=== PATIENT | female | born 1955 | race Caucasian/White ===

== ENCOUNTER 2018-09-02 00:48 | Day surgery (SDC) | payer BC ==
[~2018-09-02 00:48] MED LIST: CARV6.25 PO; COMPAZINE10 MG PO; IBUP800 PO; NEUPOGEN480 MCG/0. SC; RAMI5 PO; VALACYCLOVIR1000 MG PO; Zofran4 MG PO
== END 2018-09-02 14:40 | disposition home or self-care (01) ==
LOC: ATC 00:48
DX: D70.1 Agranulocytosis secondary to cancer chemotherapy (principal); Z88.2 Allergy status to sulfonamides
CPT/HCPCS: 96372; J1447

== ENCOUNTER 2018-09-03 00:03 | Day surgery (SDC) | payer BC | END 2018-09-03 10:24 | disposition home or self-care (01) | LOC: ATC 00:03 | DX: D70.1 Agranulocytosis secondary to cancer chemotherapy (principal) | CPT/HCPCS: 96372; J1447 ==

== ENCOUNTER 2018-09-16 00:09 | Day surgery (SDC) | payer BC | END 2018-09-16 08:11 | disposition home or self-care (01) | LOC: ATC 00:09 | DX: D70.1 Agranulocytosis secondary to cancer chemotherapy (principal); Z88.2 Allergy status to sulfonamides | CPT/HCPCS: 96372; J1447 ==

== ENCOUNTER 2018-09-17 09:57 | Day surgery (SDC) | payer BC | END 2018-09-17 10:10 | disposition home or self-care (01) | LOC: ATC 09:57 | DX: Z51.11 Encounter for antineoplastic chemotherapy (principal); D70.1 Agranulocytosis secondary to cancer chemotherapy; D07.39 Carcinoma in situ of other female genital organs | CPT/HCPCS: 96372; J1447 ==

== ENCOUNTER 2018-09-23 07:58 | Day surgery (SDC) | payer BC | END 2018-09-23 10:06 | disposition home or self-care (01) | LOC: ATC 07:58 | DX: C56.9 Malignant neoplasm of unspecified ovary (principal); D70.2 Other drug-induced agranulocytosis | CPT/HCPCS: 96372; J1447 ==

== ENCOUNTER 2018-09-24 00:04 | Day surgery (SDC) | payer BC | END 2018-09-24 10:20 | disposition home or self-care (01) | LOC: ATC 00:04 | DX: C56.9 Malignant neoplasm of unspecified ovary (principal) | CPT/HCPCS: 96372; J1447 ==

== ENCOUNTER 2018-10-07 00:05 | Day surgery (SDC) | payer BC | END 2018-10-07 09:53 | disposition home or self-care (01) | LOC: ATC 00:05 | DX: C56.9 Malignant neoplasm of unspecified ovary (principal) | CPT/HCPCS: 96372; J1447 ==

== ENCOUNTER 2018-10-08 00:05 | Day surgery (SDC) | payer BC | END 2018-10-08 09:46 | disposition home or self-care (01) | LOC: ATC 00:05 | DX: D70.1 Agranulocytosis secondary to cancer chemotherapy (principal); Z88.2 Allergy status to sulfonamides | CPT/HCPCS: 96372; J1447 ==

== ENCOUNTER 2018-10-14 00:02 | Day surgery (SDC) | payer BC | END 2018-10-14 09:39 | disposition home or self-care (01) | LOC: ATC 00:02 | DX: D70.1 Agranulocytosis secondary to cancer chemotherapy (principal); Z88.2 Allergy status to sulfonamides | CPT/HCPCS: 96372; J1447 ==

== ENCOUNTER 2018-10-15 07:36 | Day surgery (SDC) | payer BC | END 2018-10-15 09:50 | disposition home or self-care (01) | LOC: ATC 07:36 | DX: D70.1 Agranulocytosis secondary to cancer chemotherapy (principal); D07.39 Carcinoma in situ of other female genital organs | CPT/HCPCS: 96372; J1447 ==

== ENCOUNTER 2018-10-28 00:15 | Day surgery (SDC) | payer BC | END 2018-10-28 22:40 | disposition home or self-care (01) | LOC: ATC 00:15 | DX: C56.2 Malignant neoplasm of left ovary (principal); T50.905A Adverse effect of unspecified drugs, medicaments and biological substances, initial encounter; E66.9 Obesity, unspecified; I25.10 Atherosclerotic heart disease of native coronary artery without angina pectoris | CPT/HCPCS: 96372; J1447 ==

== ENCOUNTER 2018-10-29 00:22 | Day surgery (SDC) | payer BC | END 2018-10-29 09:55 | disposition home or self-care (01) | LOC: ATC 00:22 | DX: Z51.11 Encounter for antineoplastic chemotherapy (principal); C56.2 Malignant neoplasm of left ovary; D70.2 Other drug-induced agranulocytosis | CPT/HCPCS: 96372; J1447 ==

== ENCOUNTER 2018-11-04 00:14 | Day surgery (SDC) | payer BC | END 2018-11-04 09:38 | disposition home or self-care (01) | LOC: ATC 00:14 | DX: Z51.11 Encounter for antineoplastic chemotherapy (principal); C80.0 Disseminated malignant neoplasm, unspecified; C56.2 Malignant neoplasm of left ovary; D70.1 Agranulocytosis secondary to cancer chemotherapy; T50.905A Adverse effect of unspecified drugs, medicaments and biological substances, initial encounter; Z88.2 Allergy status to sulfonamides | CPT/HCPCS: 96372; J1447 ==

== ENCOUNTER 2018-11-05 00:05 | Day surgery (SDC) | payer BC | END 2018-11-05 09:38 | disposition home or self-care (01) | LOC: ATC 00:05 | DX: Z51.11 Encounter for antineoplastic chemotherapy (principal); C80.0 Disseminated malignant neoplasm, unspecified; C56.2 Malignant neoplasm of left ovary; T50.905A Adverse effect of unspecified drugs, medicaments and biological substances, initial encounter; Z88.2 Allergy status to sulfonamides | CPT/HCPCS: 96372; J1447 ==

== ENCOUNTER 2018-12-12 00:05 | Day surgery (SDC) | payer BC ==
[2018-12-12 17:16] LABS: BASOPHILS ABSOLUTE AUTO 0.02 K/mm3 (0.00-0.23); BASOPHILS PERCENT AUTO 0 % (0-2); EOSINOPHILS ABSOLUTE AUTO 0.09 K/mm3 (0.00-0.68); EOSINOPHILS PERCENT AUTO 1 % (0-6); Hematocrit 33.5 % (33.0-51.0); Hemoglobin 10.6 g/dL (11.5-16.0); IMMATURE GRAN ABSOLUTE AUTO 0.02 K/mm3 (0.00-0.10); IMMATURE GRAN PERCENT AUTO 0 % (0-1); LYMPHOCYTES ABSOLUTE AUTO 1.77 K/mm3 (0.84-5.20); LYMPHOCYTES PERCENT AUTO 25 % (21-46); MONOCYTES ABSOLUTE AUTO 0.45 K/mm3 (0.16-1.47); MONOCYTES PERCENT AUTO 6 % (4-13); Mean Corpuscular HGB 32.1 pg (26.0-34.0); Mean Corpuscular HGB Conc 31.6 g/dL (31.5-36.5); Mean Corpuscular Volume 102 fL (80-100); Mean Platelet Volume 9.2 fL (9.1-12.4); NEUTROPHILS ABSOLUTE AUTO 4.88 K/mm3 (1.96-9.15); NEUTROPHILS PERCENT AUTO 68 % (41-73); Platelet Count 192 K/mm3 (150-400); RDW Coefficient Variation 13.8 % (11.7-14.2); RDW Standard Deviation 50.9 fL (35.1-46.3); White Blood Cell Count 7.23 K/mm3 (4.00-11.30)
[2018-12-12 17:37] LABS: Alanine Aminotransfer (ALT/SGP 19 U/L (12-78); Albumin, Blood 3.6 g/dL (3.4-5.0); Albumin/Globulin Ratio 1.2 (0.8-1.8); Alk Phos 63 U/L (50-136); Anion Gap 5 mmol/L (6-16); Aspartate Aminotrans (AST/SGOT 8 U/L (12-37); Bilirubin, Total 0.4 mg/dL (0.1-1.0); Blood Urea Nitrogen 24 mg/dL (8-24); Bun/Creatinine Ratio 26.4 (12.0-20.0); CO2, Blood 27 mmol/L (21-32); Calcium, Blood 8.6 mg/dL (8.5-10.1); Chloride, Blood 106 mmol/L (98-108); Creatinine, Blood 0.91 mg/dL (0.40-1.00); Glomerular Filtration Rate >60 (60-); Glucose, Blood 93 mg/dL (70-99); Potassium, Blood 3.9 mmol/L (3.5-5.5); Sodium, Blood 138 mmol/L (136-145); Total Protein, Blood 6.6 g/dL (6.4-8.2)
[2018-12-12] MEDS ORDERED: [UNRECOGNIZED DRUG - OTHER] PO (17:50)
== END 2018-12-12 14:29 | disposition home or self-care (01) ==
LOC: ATC 00:05
PROVIDERS: Obstetrics & Gynecology Gynecologic Oncology
DX: D70.1 Agranulocytosis secondary to cancer chemotherapy (principal); T45.1X5A Adverse effect of antineoplastic and immunosuppressive drugs, initial encounter; C56.2 Malignant neoplasm of left ovary
CPT/HCPCS: 36591; 80053; 85025; J1642

== ENCOUNTER 2019-07-28 13:29 | Day surgery (SDC) | payer OTHER ==
[~2019-07-28 13:29] MED LIST changes: +Etoposide50 MG PO; +[UNRECOGNIZED DRUG - OTHER] PO
== END 2019-07-28 22:42 | disposition home or self-care (01) ==
LOC: US 13:29
DX: C56.9 Malignant neoplasm of unspecified ovary (principal); R18.0 Malignant ascites
CPT/HCPCS: 49083; 93971

== ENCOUNTER 2019-08-04 14:36 | Day surgery (SDC) | payer OTHER | END 2019-08-04 22:55 | disposition home or self-care (01) | LOC: US 14:36 | DX: C56.2 Malignant neoplasm of left ovary (principal); R18.0 Malignant ascites; I10 Essential (primary) hypertension; E78.5 Hyperlipidemia, unspecified; G47.00 Insomnia, unspecified; Z79.1 Long term (current) use of non-steroidal anti-inflammatories (NSAID); Z79.899 Other long term (current) drug therapy; Z88.2 Allergy status to sulfonamides; Z88.8 Allergy status to other drugs, medicaments and biological substances; Z90.710 Acquired absence of both cervix and uterus | CPT/HCPCS: 49083 ==

== ENCOUNTER 2019-08-11 14:36 | Day surgery (SDC) | payer OTHER | END 2019-08-11 23:13 | disposition home or self-care (01) | LOC: US 14:36 | DX: R18.8 Other ascites (principal); C56.2 Malignant neoplasm of left ovary | CPT/HCPCS: 49083 ==

== ENCOUNTER 2019-11-16 16:48 | Emergency (ER) | payer OTHER ==
[~2019-11-16] VITALS: Ht 170.2 cm; Wt 59.0 kg
[2019-11-16 18:06] LABS: BASOPHILS ABSOLUTE AUTO 0.01 K/mm3 (0.00-0.23); BASOPHILS PERCENT AUTO 0 % (0-2); EOSINOPHILS ABSOLUTE AUTO 0.01 K/mm3 (0.00-0.68); EOSINOPHILS PERCENT AUTO 0 % (0-6); Hematocrit 43.8 % (33.0-51.0); Hemoglobin 13.7 g/dL (11.5-16.0); IMMATURE GRAN ABSOLUTE AUTO 0.01 K/mm3 (0.00-0.10); IMMATURE GRAN PERCENT AUTO 0 % (0-1); LYMPHOCYTES ABSOLUTE AUTO 1.34 K/mm3 (0.84-5.20); LYMPHOCYTES PERCENT AUTO 21 % (21-46); MONOCYTES ABSOLUTE AUTO 0.53 K/mm3 (0.16-1.47); MONOCYTES PERCENT AUTO 8 % (4-13); Mean Corpuscular HGB Conc 31.3 g/dL (31.5-36.5); Mean Corpuscular Volume 102 fL (80-100); Mean Platelet Volume 8.8 fL (9.1-12.4); NEUTROPHILS ABSOLUTE AUTO 4.49 K/mm3 (1.96-9.15); NEUTROPHILS PERCENT AUTO 70 % (41-73); Platelet Count 313 K/mm3 (150-400); RDW Coefficient Variation 16.4 % (11.7-14.2); RDW Standard Deviation 63.1 fL (35.1-46.3); Red Blood Cell Count 4.28 M/mm3 (3.80-5.20); White Blood Cell Count 6.39 K/mm3 (4.00-11.30)
[2019-11-16 18:26] LABS: Alanine Aminotransfer (ALT/SGP 18 U/L (12-78); Albumin, Blood 2.7 g/dL (3.4-5.0); Albumin/Globulin Ratio 0.8 (0.8-1.8); Alk Phos 70 U/L (50-136); Anion Gap 9 mmol/L (6-16); Aspartate Aminotrans (AST/SGOT 14 U/L (12-37); Bilirubin, Total 0.4 mg/dL (0.1-1.0); Blood Urea Nitrogen 17 mg/dL (8-24); Bun/Creatinine Ratio 22.8 (12.0-20.0); CO2, Blood 24 mmol/L (21-32); Calcium, Blood 9.2 mg/dL (8.5-10.1); Chloride, Blood 102 mmol/L (98-108); Creatinine, Blood 0.74 mg/dL (0.40-1.00); Globulin, Blood 3.5 g/dL (2.2-4.0); Glomerular Filtration Rate >60 (60-); Glucose, Blood 114 mg/dL (70-99); Potassium, Blood 3.8 mmol/L (3.5-5.5); Sodium, Blood 135 mmol/L (136-145); Total Protein, Blood 6.2 g/dL (6.4-8.2); Troponin I <0.015 ng/mL (0.000-0.040)
[2019-11-16 20:06] LABS: Source, Urine Clean Catch
[2019-11-16 20:15] LABS: Appearance, Urine Hazy (Clear); Blood, Urine 3+ (Neg); Color, Urine Yellow (P-Yellow); Glucose Qualitative, Urine Neg (Neg); Ketones, Urine 3+ (Neg); Leukocyte Esterase, Urine 3+ (Neg); Nitrite, Urine Neg (Neg); Protein, Urine 2+ (Neg); Specific Gravity, Urine 1.025 (1.003-1.022); Urobilinogen, Urine 1+ (Normal)
[2019-11-16 20:30] LABS: Bilirubin, Urine 2+ (Neg)
[2019-11-16 20:32] LABS: Bacteria Many /hpf; Mucus Mod (0-Heavy); Red Blood Cells, Urine 0-2 /hpf (0-2); Squamous Epithelial Cells Few /hpf (Few); White Blood Cells, Urine TNTC /hpf (0-5)
[2019-11-16] MEDS ORDERED: METO10 PO (21:18)
[2019-11-16] MEDS ORDERED: CEPH500 PO (21:18)
== END 2019-11-16 21:33 | disposition home or self-care (01) ==
LOC: ER 16:48
PROVIDERS: Physician Assistant
DX: N39.0 Urinary tract infection, site not specified (principal); C56.9 Malignant neoplasm of unspecified ovary; I10 Essential (primary) hypertension; Z88.2 Allergy status to sulfonamides; Z79.899 Other long term (current) drug therapy
CPT/HCPCS: 36415; 74022; 80053; 81001; 83690; 84484; 85025; 87086; 93005; 93010; 96361; 96365; 96375; 99284-25; J0696; J1200; J2765; J7030